=== PATIENT | female | born 2000 | race Caucasian/White ===

== ENCOUNTER 2024-09-30 18:30 | Emergency (ER) | payer MEDICAID, SELFPAY ==
[2024-09-30 19:32] VITALS: BP 117/78; PULSE 89; RESP 18; TEMP 36.9; O2SAT 98; BMI 25.8
--- NOTE | 2024-09-30 20:01 | PD.EDFMALE ---
ED Female Urogenital RME/HPI General Chief complaint: Fever Stated complaint: FEVER, CHILLS, NAUSEA, DIARRHEA, POST UIT X FRI Time Seen by Provider: 09/30/24 19:53 Arrival date/time: 09/30/24 18:30 24F with no significant PMH presents to ED with 1 week intermittent of fevers/chills, N/V, non-bloody diarrhea, and dysuria. Patient denies URI symptoms. Patient is on her period. Limitations: no limitations Related Data Home Medications ?Medication ?Instructions ?Recorded ?Confirmed ferrous sulfate 325 mg (65 mg 325 mg PO 1XD 07/11/22 07/11/22 iron) tablet pantoprazole 40 mg tablet,delayed 40 mg PO QDAY 07/11/22 07/11/22 release vit no.95-ferrous 1 tab PO BID 07/11/22 07/11/22 fumarate 28 mg-folic acid 800 mcg tablet () Previous Rx's ?Medication ?Instructions ?Recorded benzocaine 20 %-menthol 0.5 % 1 spray topical TID #56 pumps 07/11/22 topical aerosol (Dermoplast (with menthol)) ibuprofen 800 mg tablet 800 mg PO Q6H PRN pain #90 tabs 07/11/22 lanolin 50 % topical ointment 1 applic topical TID PRN skin 07/11/22 irritation #15 tubes cefuroxime axetil 500 mg tablet 500 mg PO BID 7 days #14 tabs 10/01/24 Allergies Allergy/AdvReac Type Severity Reaction Status Date / Time No Known Allergies Allergy Verified 09/30/24 18:34 Review of Systems Review of Systems Systems Reviewed: All systems reviewed, normal except as documented Constitutional Constitutional: Reports system reviewed and no additional complaints, except as documented, Reports as per HPI, Reports chills, Reports fever(s) and Denies headache(s) ENT Ears, Nose, Mouth, and Throat: Denies disequilibrium and Denies headache(s) Cardiovascular Cardiovascular: Reports system reviewed and no additional complaints, except as documented, Denies chest pain and Denies dyspnea Respiratory Respiratory: Reports system reviewed and no additional complaints, except as documented, Denies cough and Denies dyspnea Gastrointestinal Gastrointestinal: Reports system reviewed and no additional complaints, except as documented, Reports as per HPI, Reports abdominal pain, Reports diarrhea, Reports nausea and Reports vomiting Genitourinary Genitourinary: Reports as per HPI and Reports dysuria Neurologic Neurologic: Reports system reviewed and no additional complaints, except as documented, Denies confusion, Denies disequilibrium and Denies headache(s) Psychiatric Psychiatric: Denies confusion Past Medical History Past Medical History NEUROLOGIC: Negative Neurological Disorders CARDIAC: Negative Cardiac Disorders, Hypercholesterolemia, Congestive Heart Failure or Hypertension RESPIRATORY: Negative Chronic Obstructive Pulmonary Disease (COPD) or Asthma GASTROINTESTINAL: Negative Gastrointestinal Disorders or Hepatitis GENITOURINARY: Negative Genitourinary Disorders, Renal Disease (PYELONEPHRITIS, uti), Kidney Stones, Polycystic Kidney Disease, Neurogenic Bladder, Inguinal Hernia, Dialysis or Benign Prostatic Hyperplasia REPRODUCTIVE: Positive Previous Pregnancies (gave 07/2022) MUSCULOSKELETAL: Negative Musculoskeletal Disorders ENDOCRINE: Negative Endocrine Disorders, Diabetes Mellitus Type 1 or Diabetes Mellitus Type 2 HEMATOLOGIC: Positive Blood Disorders and Anemia; Negative Leukemia, Hemophilia, Thalassemia, Sickle Cell Disease or Clotting Problems PSYCHO/SOCIAL: Positive Depression (2020) and Anxiety (2020); Negative Psychiatric Problems, Schizophrenia, Recreational Drug Use, Bipolar Disorder, Behavior Problems, Self-Mutilation, Attention Deficit Disorder, Attention Deficit Hyperactivity Disorder, Depression, Post Traumatic Stress Disorder or Eating Disorder OTHER HISTORY: Negative Hospitalization, Autoimmune Disease, Down Syndrome, Autism, Developmental Delay, Shingles, Falls, Blood Transfusions, Blood Transfusion Reaction, Anesthesia Reactions, Organ Transplant, Chemotherapy, Radiation Therapy, Hyperbaric Therapy, MRSA, VRSA, Vancomycin-Resistant Enterococci, Human Immunodeficiency Virus (HIV), Chicken Pox, Measles, Mumps, Rubella (Macedonian Measles), Pertussis, Clostridium Difficile or Cancer Family History FAMILY HISTORY: Positive Family Surgery (appendectomy (mom,brother, grandmother)); Negative Family Psychiatric Problems, Family Respiratory Disorders, Family Cardiac Disorders, Family Gastrointestinal Problems, Family Cancer or Family Anesthesia Reaction Surgical History SURGICAL: Negative Section or Organ Transplant Social History SMOKING STATUS: Never smoker ED Exam General Limitations: Present no limitations General appearance: Present alert and in no apparent distress Head Head exam: Present atraumatic Eye Eye exam: Present normal appearance, PERRL and EOMI ENT ENT exam: Present normal exam, normal oropharynx and mucous membranes moist Neck Neck exam: Present normal inspection, full ROM and trachea midline Chest Chest inspection: Present normal inspection and symmetric chest wall rise Respiratory Respiratory exam: Present normal lung sounds bilaterally Cardiovascular Cardiovascular exam: Present regular rate, normal rhythm and normal heart sounds Abdominal Exam Abdominal exam: Present soft and normal bowel sounds Extremities Exam Extremities exam: Present normal inspection and full ROM Back Exam Back exam: Present full ROM and CVA tenderness (L) (mild) Neurological Exam Neurological exam: Present alert, oriented X3 and CN II-XII intact Psychiatric Psychiatric exam: Present normal affect and normal mood Skin Skin exam: Present warm, dry, intact and normal color Course Quality Measures none Orders Category Date Time Status CT abdomen pelvis wo con Stat Exams 09/30/24 22:52 Completed CBC Stat Lab 09/30/24 20:02 Completed CMP [Comprehensive Metabolic Panel] Stat Lab 09/30/24 20:02 Completed HCG Qualitative,Urine Stat Lab 09/30/24 21:53 Completed Urinalysis, C/S if Indicated Stat Lab 09/30/24 21:53 Completed Potassium Chloride [K-Dur] Med 09/30/24 20:37 Discontinued 40 meq PO X1 ONE Vital Signs Vital signs: Vital Signs Temperature 98.4 F 09/30/24 19:32 Pulse Rate 89 09/30/24 19:32 Respiratory Rate 18 09/30/24 19:32 Blood Pressure 117/78 09/30/24 19:32 Pulse Oximetry (%) 98 09/30/24 19:32 Oxygen Delivery Method Room Air 09/30/24 19:32 O2 at 98% on RA and WNLs Urogenital - Female MDM Narrative MDM Narrative:: 24F with no significant PMH presents to ED with 1 week intermittent of fevers/chills, N/V, non-bloody diarrhea, and dysuria. Patient denies URI symptoms. Patient is on her period. Physical exam reveals minimal L flank tenderness. No ab tenderness. Patient is afebrile, calm, and alert. No leukocytosis. Mild hypoK, repleted, likely due to GI loss. CT unremarkable. UA lots of blood and some RBCs. Will treat as UTI given symptoms of dysuria. More likely viral gastroenteritis. Patient data External records reviewed:: [facility] previous records Clinical information provided by:: patient Social determinants that could affect healthcare access:: none Patient has the following chronic illnesses:: none How is presenting disease/condition affected by chronic disease/condition?: no chronic disease Evaluation data The following diagnostics were reviewed and interpreted by me:: lab results Lab and/or radiology exams considered but not ordered:: ordered Interpretation Summary: above Medications / Prescriptions Medications or Prescriptions considered but not ordered:: ordered Medication administrations:: Medication Administration History Discontinued Medications Potassium Chloride (Potassium Chloride 20 Meq Tabcr) 40 meq PO X1 ONE Stop: 09/30/24 20:38 Last Admin: 09/30/24 21:29 Dose: 40 meq Documented By: above Consultations Consultation(s) initiated? (list below): No Diagnosis Urogenital Female Differential Diagnosis: urinary tract infection, bacterial vaginosis, trichomoniasis, cervicitis, ovarian cyst, vaginitis, ruptured ovarian cyst, cyst of Bartholin's gland, cystitis, dysmenorrhea and other (gastroenteritis) Most likely diagnosis given after review of the tests above:: UTI and gastroenteritis Admission Indicated Admission indicated?: not indicated Admission Request Was there a request for admission?: No Disposition Plan Disposition Plan: Discharge Discharge Attestation Discharge Attestation: The patient and all family members were given an opportunity to ask questions and understood the discharge instructions. Discharge instructions specifically effects, indications for sooner follow up or return to the emergency department, and the expected course of current diagnosis. Patient condition: Stable Discharge Plan Plan Patient Disposition: HOME (Self Care) Discharge Disposition comment: Stable Prescriptions/Referrals Prescriptions/Med Rec: New cefuroxime axetil 500 mg tablet 500 mg PO BID 7 Days Qty: 14 0RF No Action pantoprazole 40 mg Tablet,Delayed Release (Dr/Ec) 40 mg PO QDAY ferrous sulfate 325 mg (65 mg iron) tablet 325 mg PO 1XD Patient Comments: TAKE 1 TABLET BY MOUTH TWICE A DAY PNV cmb#95-ferrous fumarate-FA [] 28 mg iron- 800 mcg tablet 1 tab PO BID Patient Comments: TAKE 1 TABLET BY MOUTH EVERY DAY FOR 30 DAYS Dermoplast (with menthol) 20-0.5 % aerosol 1 spray topical TID Qty: 56 0RF ibuprofen 800 mg tablet 800 mg PO Q6H MDD 4 PRN (Reason: pain) Qty: 90 0RF lanolin 50 % ointment 1 applic topical TID PRN (Reason: skin irritation) Qty: 15 0RF Referrals: Lino Cardoza MD [Primary Care Provider] - In 1 week Problem List Clinical Impression: Gastroenteritis, UTI (urinary tract infection) Patient/Caregiver Discharge Instructions Education Materials: ED Diarrhea, Viral (Adult) Additional Instructions: Please follow-up with PCP within 24-48 hours and return immediately if symptoms worsen. Follow-up with PCP for possible stool sampling. Print Language: Vietnamese Stand Alone Forms: Patient Portal Info Letter BELINDA/PATRICIA Supervising Physician BELINDA/PATRICIA Supervising Physician: Dr. Campbell
[2024-09-30 20:19] LABS: Basophils % (Auto) 1 % (0-2.5); Eosinophils # (Auto) 0.2 Thou/mm3 (0.0-0.5); Eosinophils % (Auto) 3 % (0-10); Hematocrit 39.3 % (36.0-46.0); Hemoglobin 13.7 g/dL (12.0-16.0); Immature Granulocytes % (Auto) 0 % (0-0); Immature Granulocytes Auto 0.01 Thou/mm3 (0.00-0.00); Lymphocytes % (Auto) 34 % (10-50); Mean Corpuscular HGB Conc 34.9 g/dl (31.0-37.0); Mean Corpuscular Hemoglobin 30.6 pg (25.0-35.0); Mean Corpuscular Volume 88 fL (80-100); Monocytes # (Auto) 0.8 Thou/mm3 (0.0-0.8); Monocytes % (Auto) 14 % (0-12); Neutrophils # (Auto) 2.9 Thou/mm3 (1.8-7.7); Neutrophils % (Auto) 48 % (37-80); Nucleated Red Blood Cell % 0 /100 WBC (0); Platelet Count 249 Thou/mm3 (140-440); RDW Standard Deviation 42.4 fL (36.4-46.3); Red Blood Count 4.47 Miln/mm3 (4.00-5.20)
[2024-09-30 20:33] LABS: Alanine Aminotransferase 46 U/L (10-49); Albumin, Serum 4.4 gm/dL (3.5-5.0); Albumin/Globulin Ratio 1.4 (1.2-2.2); Alkaline Phosphatase 91 U/L (46-116); Anion Gap 12 (7-16); Aspartate Amino Transferase 21 U/L (0-34); BUN/Creatinine Ratio 11 Ratio (12-20); Bilirubin,Total 0.3 mg/dL (0.3-1.2); Blood Urea Nitrogen 9 mg/dL (9-23); Calcium 9.2 mg/dL (8.3-10.6); Calcium (Corrected) 9.2 mg/dL (8.5-10.1); Carbon Dioxide 22.1 mMol/L (20.0-31.0); Chloride 105 mMol/L (98-107); Creatinine (Component) 0.8 mg/dL (0.6-1.3); Estimated Creatinine Clearance 97.5 mL/min (>60); Globulin 3.2 gm/dL (2.3-3.5); Glucose 87 mg/dL (74-106); Osmolality,Calculated 275 (275-295); Potassium 3.2 mMol/L (3.4-5.1); Sodium 139 mMol/L (136-145); Total Protein 7.6 gm/dL (5.7-8.2); eGFR > 60 See Note
[2024-09-30] MEDS: POTASSIUM CHLORIDE 20 mEq TABCR 40 MEQ PO (21:29)
[2024-09-30 22:05] LABS: Collection Type, Urine Clean Catch
[2024-09-30 22:17] LABS: Bilirubin,Urine Negative (Negative); Blood,Urine 3+ (Negative); Clarity,Urine Turbid (Clear/Hazy); Color,Urine Yellow (Lt Yel-Yel); Culture Indicated,Urine Contaminated; Glucose, Urine Negative (Negative); Ketones,Urine Negative (Negative); Leukocyte Esterase,Urine Positive (Negative); Nitrite,Urine Negative (Negative); Protein,Urine 1+ (Neg - Trace); RBC,Urine 2851 /hpf (0-3); Specific Gravity,Urine 1.033 (1.001-1.035); Squamous Epithelial Cell,Urine 15 /hpf (0-5); Urobilinogen,Urine Negative mg/dL (0.0-1.0); WBC,Urine 33 /hpf (0-5)
[2024-09-30 22:50] LABS: HCG Qualitative,Urine Negative
--- NOTE | 2024-09-30 22:52 | XR_ITS ---
Examination: CT abdomen and pelvis without contrast. Coronal 3-D reconstructions. Sagittal 2-D reconstructions. Date and time of exam:September 30, 2024 10:57 PM INDICATIONS: Fever chills diarrhea beginning September 25, 2024 CTDI: vol (mGy): 7.25 DLP: (mGycm): 354 Technique: Axial images of the abdomen have been obtained, 3 mm slice thickness Intravenous contrast material has not been administered. Low dose protocols were performed. One or more of the following dose reduction techniques were used; automated exposure control, adjustment of the mA and/or KV according to patient size, use of iterative reconstruction technique. Findings: No focal liver or splenic lesion Contracted gallbladder No pancreatic mass No renal or ureteral calculi, no hydronephrosis Aorta normal size No pericecal inflammatory change No diverticulitis or bowel obstruction Urinary bladder intact IMPRESSION: No renal or ureteral calculi, no hydronephrosis No CT findings of appendicitis or diverticulitis bowel obstruction or free air
[2024-10-01 01:53] VITALS: BP 126/81; PULSE 78; RESP 16; TEMP 36.6; O2SAT 98
== END 2024-10-01 02:09 | disposition home or self-care (01) ==
PROVIDERS: Physician Assistant; Emergency Provider Emergency Medicine; PCP Family Medicine
DX: K52.9 Noninfective gastroenteritis and colitis, unspecified (principal); N39.0 Urinary tract infection, site not specified
CPT/HCPCS: 36415; 74176; 80053; 81001; 81025; 85025; 99284; A9270

== ENCOUNTER 2024-11-20 08:25 | Emergency (ER) | payer MEDICAID, SELFPAY ==
[2024-11-20 08:33] VITALS: BP 110/75; PULSE 89; RESP 17; TEMP 37.2; O2SAT 98; BMI 24.4
--- NOTE | 2024-11-20 08:40 | XR_ITS ---
Examination: Pelvic ultrasound, transabdominal, complete Technique: Transabdominal ultrasound of the pelvis performed using grayscale imaging Date and time of exam: November 20, 2024 0903 hours INDICATIONS: Left-sided pelvic pain beginning 3 months ago FINDINGS: Uterus 7.3 cm endometrial stripe 0.6 cm No uterine mass or intrauterine gestation Right ovary 3.1 cm arterial flow 15 mm 12 mm follicular cyst Dilated fluid-filled right fallopian tube 10 mm Left ovary 2.4 cm arterial flow 15 mm follicular cyst IMPRESSION: No uterine mass or intrauterine gestation Right hydrosalpinx versus pyosalpinx, clinical correlation advised
--- NOTE | 2024-11-20 08:41 | PD.EDRME ---
Rapid Medical Screening Exam RME Arrival date/time: 11/20/24 08:25 24-year-old female with no known medical history presents to the emergency room with a chief complaint of left lower quadrant pelvic pain, 1 month of bright red rectal bleeding, and lower abdominal cramping. I have greeted and performed a focused initial assessment of this patient. A comprehensive ED assessment and evaluation of the patient, analysis of all test results, and completion of the medical decision making process will be conducted by additional ED providers. Chief Complaint: Nausea/Vomiting/Diarrhea Vital signs: Vital Signs Temperature 98.9 F 11/20/24 08:33 Pulse Rate 89 11/20/24 08:33 Respiratory Rate 17 11/20/24 08:33 Blood Pressure 110/75 11/20/24 08:33 Pulse Oximetry (%) 98 11/20/24 08:33 Oxygen Delivery Method Room Air 11/20/24 08:33 Vital signs reviewed by provider: Yes
[2024-11-20 09:14] LABS: Basophils # (Auto) 0.1 Thou/mm3 (0.0-0.2); Basophils % (Auto) 1 % (0-2.5); Eosinophils # (Auto) 0.2 Thou/mm3 (0.0-0.5); Eosinophils % (Auto) 2 % (0-10); Hematocrit 42.8 % (36.0-46.0); Hemoglobin 14.5 g/dL (12.0-16.0); Immature Granulocytes Auto 0.02 Thou/mm3 (0.00-0.00); Lymphocytes # (Auto) 1.9 Thou/mm3 (1.0-4.8); Lymphocytes % (Auto) 27 % (10-50); Mean Corpuscular HGB Conc 33.9 g/dl (31.0-37.0); Mean Corpuscular Hemoglobin 30.9 pg (25.0-35.0); Mean Corpuscular Volume 91 fL (80-100); Monocytes # (Auto) 0.5 Thou/mm3 (0.0-0.8); Monocytes % (Auto) 8 % (0-12); Neutrophils # (Auto) 4.4 Thou/mm3 (1.8-7.7); Neutrophils % (Auto) 62 % (37-80); Nucleated Red Blood Cell # 0.00 Thou/mm3 (0.00-0.00); Nucleated Red Blood Cell % 0 /100 WBC (0); Platelet Count 347 Thou/mm3 (140-440); RDW Standard Deviation 43.9 fL (36.4-46.3); Red Blood Count 4.70 Miln/mm3 (4.00-5.20); White Blood Count 7.1 Thou/mm3 (3.6-11.0)
[2024-11-20 09:18] LABS: Collection Type, Urine Clean Catch
[2024-11-20 09:30] LABS: HCG Qualitative,Urine Negative
[2024-11-20 09:38] LABS: Alanine Aminotransferase 14 U/L (10-49); Albumin, Serum 4.6 gm/dL (3.5-5.0); Albumin/Globulin Ratio 1.4 (1.2-2.2); Alkaline Phosphatase 88 U/L (46-116); Anion Gap 11 (7-16); Aspartate Amino Transferase 13 U/L (0-34); BUN/Creatinine Ratio 11 Ratio (12-20); Bilirubin,Total 0.8 mg/dL (0.3-1.2); Blood Urea Nitrogen 10 mg/dL (9-23); Calcium 9.5 mg/dL (8.3-10.6); Calcium (Corrected) 9.5 mg/dL (8.5-10.1); Carbon Dioxide 23.6 mMol/L (20.0-31.0); Chloride 107 mMol/L (98-107); Creatinine (Component) 0.9 mg/dL (0.6-1.3); Estimated Creatinine Clearance 78.4 mL/min (>60); Globulin 3.4 gm/dL (2.3-3.5); Glucose 90 mg/dL (74-106); Lipase 38 U/L (12-53); Osmolality,Calculated 282 (275-295); Potassium 3.5 mMol/L (3.4-5.1); Sodium 142 mMol/L (136-145); Total Protein 8.0 gm/dL (5.7-8.2); eGFR > 60 See Note
[2024-11-20 09:49] LABS: Bilirubin,Urine Negative (Negative); Blood,Urine 2+ (Negative); Clarity,Urine Turbid (Clear/Hazy); Color,Urine Yellow (Lt Yel-Yel); Glucose, Urine Negative (Negative); Hyaline Casts,Urine 1 /hpf (0-1); Ketones,Urine Trace (Negative); Leukocyte Esterase,Urine Positive (Negative); Nitrite,Urine Negative (Negative); PH,Urine 6.0 (5.0-7.0); Protein,Urine 1+ (Neg - Trace); RBC,Urine 4 /hpf (0-3); Specific Gravity,Urine 1.036 (1.001-1.035); Squamous Epithelial Cell,Urine 8 /hpf (0-5); Urobilinogen,Urine Negative mg/dL (0.0-1.0); WBC,Urine 11 /hpf (0-5)
[2024-11-20 12:10] VITALS: BP 114/89; PULSE 86; RESP 15; TEMP 36.6; O2SAT 100
--- NOTE | 2024-11-20 12:16 | PD.EDNV ---
Nausea/Vomit./Diarrhea-RME/HPI General Chief complaint: Nausea/Vomiting/Diarrhea Stated complaint: SOB, vomiting, blood in stool X 1 month, dizzy Time Seen by Provider: 11/20/24 11:35 Arrival date/time: 11/20/24 08:25 RME / HPI RME / HPI Narrative: 24-year-old female patient came in for evaluation regarding multiple complaints. Patient is having on and off bright red blood per rectum. Shortness of breath, vomiting, constipation, dizzy, has been ongoing, on and off for the last 1 month. Bright red blood per rectum was noted to be small amount, sometimes with hard stool. Patient denies any fever. Denies any abdominal pain. Patient denies any rectal pain. Denies any palpable masses in the rectal area. Denies any other complaints no medications taken prior to arrival. Related Data Home Medications ?Medication ?Instructions ?Recorded ?Confirmed ferrous sulfate 325 mg (65 mg 325 mg PO 1XD 07/11/22 07/11/22 iron) tablet pantoprazole 40 mg tablet,delayed 40 mg PO QDAY 07/11/22 07/11/22 release vit no.95-ferrous 1 tab PO BID 07/11/22 07/11/22 fumarate 28 mg-folic acid 800 mcg tablet () Previous Rx's ?Medication ?Instructions ?Recorded benzocaine 20 %-menthol 0.5 % 1 spray topical TID #56 pumps 07/11/22 topical aerosol (Dermoplast (with menthol)) ibuprofen 800 mg tablet 800 mg PO Q6H PRN pain #90 tabs 07/11/22 lanolin 50 % topical ointment 1 applic topical TID PRN skin 07/11/22 irritation #15 tubes hydrocortisone acetate 25 mg 25 mg KS QDAY #12 ea 11/20/24 rectal suppository (Anusol-HC) pantoprazole 40 mg tablet,delayed 40 mg PO QDAY #14 tabs 11/20/24 release (Protonix) Allergies Allergy/AdvReac Type Severity Reaction Status Date / Time No Known Allergies Allergy Verified 11/20/24 08:31 Review of Systems Review of Systems Narrative Review of Systems: Review of system reviewed and within normal limits except mentioned in HPI ED Exam Narrative Physical exam: VITAL SIGNS: Reviewed. GENERAL APPEARANCE: Alert and interactive, follows commands, no acute distress, HEAD AND FACE: Non-traumatic. ENT: PERRL, pink conjunctivitis, eyelid no trauma, Mucous membrane moist. NECK: Supple, nontender, no nuchal rigidity. CHEST: No tenderness, no crepitus, no paradoxical movement, no retractions. LUNGS: Clear, well ventilated, symmetric, no rales, no wheezing, no ronchi, no stridor, good breath sounds bilaterally. HEART: Regular rate, regular rhythm, no murmur, no gallops. ABDOMEN: Soft, positive bowel sounds, nondistended, no guarding, nontender, no rebound, no masses, RECTAL: Deferred. GENITAL: Deferred. NEUROLOGICAL: Gross motor function intact sensory function intact, Appropriate for age. MUSCULOSKELETAL: low back nontender, full range of motion. EXTREMITIES: Nontender, full range of motion. SKIN: Color pink, dry, no rash, no lacerations, no abrasions, no contusions. LYMPHATICS: Deferred. Course Quality Measures none Orders Category Date Time Status US pelvic complete Stat Exams 11/20/24 08:40 Completed CBC Stat Lab 11/20/24 09:00 Completed CMP [Comprehensive Metabolic Panel] Stat Lab 11/20/24 09:00 Completed Drug Screen,Urine Stat Lab 11/20/24 11:37 Ordered HCG Qualitative,Urine Stat Lab 11/20/24 09:12 Completed Lipase Stat Lab 11/20/24 09:00 Completed UA [Urinalysis] Stat Lab 11/20/24 09:12 Completed Urine Culture Stat Lab 11/20/24 08:40 Received Magnesium Citrate Liqd [Citrate of Magnesia Liqd] Med 11/20/24 12:14 Discontinued 300 ml PO X1 ONE Ondansetron Odt [Zofran Odt] Med 11/20/24 12:14 Discontinued 4 mg PO X1 ONE Vital Signs Vital signs: Vital Signs Temperature 98.9 F 11/20/24 08:33 Pulse Rate 89 11/20/24 08:33 Respiratory Rate 17 11/20/24 08:33 Blood Pressure 110/75 11/20/24 08:33 Pulse Oximetry (%) 98 11/20/24 08:33 Oxygen Delivery Method Room Air 11/20/24 08:33 Nausea/Vomiting/Diarrhea MDM Narrative MDM Narrative:: 24-year-old female patient came in for evaluation regarding multiple complaints. Patient is having on and off bright red blood per rectum. Shortness of breath, vomiting, constipation, dizzy, has been ongoing, on and off for the last 1 month. Bright red blood per rectum was noted to be small amount, sometimes with hard stool. Patient denies any fever. Denies any abdominal pain. Patient denies any rectal pain. Denies any palpable masses in the rectal area. Denies any other complaints no medications taken prior to arrival. Patient's workup all came back unremarkable. Patient's urinalysis is contaminated. Patient is denying any symptoms of UTI. Patient told me that she is waiting for a call from GI specialist to be seen. Patient appears nontoxic and hemodynamically stable .Decision to discharge the patient. The patient/family was given an opportunity to ask questions and understood their discharge instructions. Discharge instructions specifically included follow up provider and time frame, current and/or new medications and possible side effects, indications for sooner follow up or return to the emergency department, and the expected course of current diagnosis. Patient reports feeling better as well and giving evidence of significant clinical improvement, I believe patient is now a candidate for discharge. Patient data External records reviewed:: None Clinical information provided by:: patient and family Social determinants that could affect healthcare access:: none Patient has the following chronic illnesses:: None How is presenting disease/condition affected by chronic disease/condition?: no chronic disease Evaluation data The following diagnostics were reviewed and interpreted by me:: lab results Lab and/or radiology exams considered but not ordered:: None Interpretation Summary: See results MDM Medications / Prescriptions Medications / Prescriptions considered but not ordered:: None Zofran and magnesium citrate Medication administrations:: Medication Administration History Discontinued Medications Magnesium Citrate (Magnesium Citrate 300 Ml Btl) 300 ml PO X1 ONE Stop: 11/20/24 12:15 Last Admin: 11/20/24 12:36 Dose: 300 ml Documented By: MARGARITO Ondansetron HCl (Ondansetron Odt 4 Mg Tabrap) 4 mg PO X1 ONE; Protocol Stop: 11/20/24 12:15 Last Admin: 11/20/24 12:35 Dose: 4 mg Documented By: EF Magnesium Zofran Consultations Consultation(s) initiated? (list below): No Diagnosis Nausea Differential Diagnosis: gastroenteritis and other (Constipation, bright red blood per rectum) Most likely diagnosis given after review of the tests above:: Constipation, bright red blood per rectum, constipation Admission Indicated Admission indicated?: not indicated Admission Request Was there a request for admission?: No Disposition Plan Disposition Plan: Discharge Discharge Attestation Discharge Attestation: The patient and all family members were given an opportunity to ask questions and understood the discharge instructions. Discharge instructions specifically effects, indications for sooner follow up or return to the emergency department, and the expected course of current diagnosis. Patient condition: Stable Discharge Plan Plan Patient Disposition: HOME (Self Care) Discharge Disposition comment: Stable Prescriptions/Referrals Prescriptions/Med Rec: New hydrocortisone acetate [Anusol-HC] 25 mg suppository 25 mg KS QDAY Qty: 12 0RF pantoprazole [Protonix] 40 mg tablet,delayed release (DR/EC) 40 mg PO QDAY Qty: 14 0RF No Action pantoprazole 40 mg Tablet,Delayed Release (Dr/Ec) 40 mg PO QDAY ferrous sulfate 325 mg (65 mg iron) tablet 325 mg PO 1XD Patient Comments: TAKE 1 TABLET BY MOUTH TWICE A DAY PNV cmb#95-ferrous fumarate-FA [] 28 mg iron- 800 mcg tablet 1 tab PO BID Patient Comments: TAKE 1 TABLET BY MOUTH EVERY DAY FOR 30 DAYS Dermoplast (with menthol) 20-0.5 % aerosol 1 spray topical TID Qty: 56 0RF ibuprofen 800 mg tablet 800 mg PO Q6H MDD 4 PRN (Reason: pain) Qty: 90 0RF lanolin 50 % ointment 1 applic topical TID PRN (Reason: skin irritation) Qty: 15 0RF Referrals: Lino Cardoza MD [Primary Care Provider] - In 1 week Problem List Clinical Impression: Bright red blood per rectum, Constipation Patient/Caregiver Discharge Instructions Discharge Activity: activity as tolerated Education Materials: Understanding Rectal Bleeding Additional Instructions: Thank you for the opportunity for serving you today. You are stable for discharged . You are advised to: Follow-up with your GI specialist referral as instructed Return to ED for worsening of symptoms Increase oral fluids Take medication as prescribed Increase fiber in the diet you can take prune juice as needed for your constipation also. Eat a lot of papaya Print Language: French Stand Alone Forms: [employer] Award Info., Patient Portal Info Letter
[2024-11-20] MEDS: ONDANSETRON ODT 4 MG TABRAP PO (12:35)
[2024-11-20] MEDS: MAGNESIUM CITRATE 300 ML BTL PO (12:36)
== END 2024-11-20 13:11 | disposition home or self-care (01) ==
PROVIDERS: Nurse Practitioner Family; Emergency Provider Emergency Medicine; PCP Family Medicine
DX: K62.5 Hemorrhage of anus and rectum (principal); K59.00 Constipation, unspecified; R10.2 Pelvic and perineal pain
CPT/HCPCS: 36415; 76856; 80053; 80307; 81001; 81025; 83690; 85025; 87086; 99284; Q0162; A9270

== ENCOUNTER 2024-11-28 03:00 | Emergency (ER) | payer MEDICAID, SELFPAY ==
[2024-11-28 03:01] VITALS: BP 121/87; PULSE 115; RESP 17; TEMP 36.9; O2SAT 100; BMI 24.3
--- NOTE | 2024-11-28 03:25 | XR_ITS ---
Examination: Abdomen sonogram, Limited Date and time of exam: November 28, 2024 0358 hours INDICATIONS: Abdominal pain and vomiting beginning 2 months ago Technique: Real-time hernandez scale transabdominal sonographic images of the upper abdomen obtained. Findings: Normal gallbladder Normal common bile duct 0.4 cm Pancreatic head 2.2 cm Liver 15.2 cm no liver lesions. Normal hepatopedal portal venous flow Patent IVC Impression : Negative study
--- NOTE | 2024-11-28 03:29 | PD.EDABDPN ---
ED Abdominal Pain RME/HPI General Chief Complaint: Abdominal Pain Stated complaint: UPPER ABD PAIN, SOB, THROAT PAIN Time seen by provider: 11/28/24 03:19 Arrival date/time: 11/28/24 03:00 RME / HPI RME / HPI narrative: This section includes all my notes and documentations, including HPI, PE, and ED course. Adan Tellez MD HPI: 24 y/o female presents with worsening severe upper abdominal pain and vomiting x 3 days. She has lost 20-25 pounds and has been experiencing abdominal pain for the last 1.5 months. Patient is pending colonoscopy. Denies any chance of . Denies any prior abdominal surgeries. She is currently on Protonix. No other complaints. ROS: All negative except as documented in HPI. Physical Exam: General: Alert and oriented. In severe pain. Eyes: Conjunctivae and lids clear. ENT: No nasal congestion. Neck: Supple. Heart: RRR. Lungs: No respiratory distress. Good air movement. No rhonchi, wheezing, rales. Abdomen: Soft with epigasric tenderness. Normal bowel sounds. No distension. No rebound or guarding. Back: No CVA tenderness. Skin: Warm and dry. Neuro: Alert and oriented X 3. I reviewed all diagnostic test results: My review of the Gall Bladder US report is: NAD. Blood tests unremarkable. UA showed leukocyte Estrace, 29 RBC, 14 WBC, and 2+ bacteria. Covid/Influenza: Negative. At this point, diagnoses include: Gastritis and UTI. Treatment here included: Pepcid 20 mg, Morphine 4 mg, Zofran 4 mg, Protonix 40 mg, IVF. Significant improvement noted. Recommended outpatient management. Based on my best medical judgment, made decision no further evaluation or treatment indicated at this time. Patient understands and agrees to the discharge instructions customized and printed, see below. Discharge instructions from Dr. Tellez: ?After evaluation, your symptoms are due to stomach ulcer (see attached handout).? ?To help heal the ulcer, take famotidine daily as prescribed along with your Protonix daily for a month. ?Zofran for nausea/vomiting.? Clear liquid diet for 24 hours.? Then slowly advance diet as tolerated. ?Avoid food and beverages that can trigger and worsen ulcers.? See attached handout. --Tylenol with codeine for severe pain. ?See a private doctor on 11/30/2024. Ask to review all test results and official radiology reports, to make sure you receive all necessary follow-ups and monitoring. To make sure there is no serious intra-abdominal condition, ask for help with more investigation not available here in the ER.? Such as EGD or scoping the stomach, colonoscopy or scoping the colon, and referral to see vacuum cleaner repair person. ?Seek immediate medical care with worsening or with any concerns. Adan Tellez MD Related Data Home Medications ?Medication ?Instructions ?Recorded ?Confirmed ferrous sulfate 325 mg (65 mg 325 mg PO 1XD 07/11/22 07/11/22 iron) tablet pantoprazole 40 mg tablet,delayed 40 mg PO QDAY 07/11/22 07/11/22 release vit no.95-ferrous 1 tab PO BID 07/11/22 07/11/22 fumarate 28 mg-folic acid 800 mcg tablet () Previous Rx's ?Medication ?Instructions ?Recorded benzocaine 20 %-menthol 0.5 % 1 spray topical TID #56 pumps 07/11/22 topical aerosol (Dermoplast (with menthol)) ibuprofen 800 mg tablet 800 mg PO Q6H PRN pain #90 tabs 07/11/22 lanolin 50 % topical ointment 1 applic topical TID PRN skin 07/11/22 irritation #15 tubes hydrocortisone acetate 25 mg 25 mg SC QDAY #12 ea 11/20/24 rectal suppository (Anusol-HC) pantoprazole 40 mg tablet,delayed 40 mg PO QDAY #14 tabs 11/20/24 release (Protonix) acetaminophen 300 mg-codeine 30 mg 2 tab PO Q8H PRN pain #20 tabs 11/28/24 tablet cefdinir 300 mg capsule 300 mg PO BID #14 caps 11/28/24 famotidine 40 mg tablet 40 mg PO BID #60 tabs 11/28/24 ondansetron 4 mg disintegrating 4 mg PO TID PRN nausea and 11/28/24 tablet vomiting 30 days #10 tabs Allergies Allergy/AdvReac Type Severity Reaction Status Date / Time No Known Allergies Allergy Verified 11/20/24 08:31 Review of Systems Review of Systems Systems Reviewed: All systems reviewed, normal except as documented Past Medical History Past Medical History REPRODUCTIVE: Positive Previous Pregnancies HEMATOLOGIC: Positive Blood Disorders and Anemia PSYCHO/SOCIAL: Positive Depression and Anxiety Family History FAMILY HISTORY: Positive Family Surgery ED Exam Narrative Physical exam: Ref[facility] to [facility] Course Quality Measures none Orders Category Date Time Status Bedside COVID-19 Antigen Test NOW Care 11/28/24 03:24 Completed Bedside Influenza A&B Antigen Test NOW Care 11/28/24 03:24 Completed Saline [Insert IV] NOW Care 11/28/24 03:24 Completed US gall bladder Stat Exams 11/28/24 03:25 Completed Alcohol, Blood Medical Stat Lab 11/28/24 04:00 Completed Amylase Stat Lab 11/28/24 04:00 Completed Bilirubin,Direct Stat Lab 11/28/24 04:00 Completed CBC Stat Lab 11/28/24 04:00 Completed CMP [Comprehensive Metabolic Panel] Stat Lab 11/28/24 04:00 Completed HCG,Qualitative Serum Stat Lab 11/28/24 04:00 Completed Lipase Stat Lab 11/28/24 04:00 Completed Magnesium Stat Lab 11/28/24 04:00 Completed UA, C/S IF [Urinalysis, C/S if Indicated] Stat Lab 11/28/24 03:26 Completed Urine Culture Stat Lab 11/28/24 04:37 Received Famotidine Inj [Pepcid Inj] Med 11/28/24 03:24 Discontinued 20 mg IVP X1 ONE Morphine Inj Med 11/28/24 03:24 Discontinued 4 mg IVP X1 ONE Ondansetron Inj [Zofran Inj] Med 11/28/24 03:24 Discontinued 4 mg IVP X1 ONE Pantoprazole Inj [Protonix Inj] Med 11/28/24 03:24 Discontinued 40 mg IVP X1 ONE Sodium Chloride 0.9% 1000 ml [Ns] 1,000 ml Med 11/28/24 03:24 Discontinued IV 999 mls/hr Vital Signs Vital signs: Vital Signs Temperature 98.4 F 11/28/24 03:01 Pulse Rate 115 H 11/28/24 03:01 Respiratory Rate 17 11/28/24 03:01 Blood Pressure 121/87 H 11/28/24 03:01 Pulse Oximetry (%) 100 11/28/24 03:01 Oxygen Delivery Method Room Air 11/28/24 03:01 Abdominal Pain MDM MDM Narrative MDM Narrative:: Scribe Attestation: I, Kim Dominguez, am scribing for and in the presence of Dr. Tellez. Provider Notation: Although this document has been carefully reviewed, there may still be some phonetic and other typographical errors.? These errors are purely grammatical due to imperfections in the software program and should not be construed in any way to? compromise the substance of the patient's medical care during this visit. 24 y/o female presents with worsening severe upper abdominal pain and vomiting x 3 days. She has lost 20-25 pounds and experiencing abdominal pain for the last 1.5 months. Pain is worse, about 9 out of 10, when laying down. Patient is pending colonoscopy. Denies any chance of . Denies any prior abdominal surgeries. She is currently on Protonix. No other complaints. Patient data External records reviewed:: [facility] previous records (Reviewed prior ED records from 11/20/24. Patient was seen for Bright red blood per rectum.) Clinical information provided by:: patient Social determinants that could affect healthcare access:: none Patient has the following chronic illnesses:: Depression, Anxiety, Anemia How is presenting disease/condition affected by chronic disease/condition?: exacerbated by Evaluation data The following diagnostics were reviewed and interpreted by me:: lab results and radiology exam(s) Lab and/or radiology exams considered but not ordered:: None Interpretation Summary: I reviewed all diagnostic test results: My review of the Gall Bladder US report is: NAD. Blood tests unremarkable. UA showed leukocyte Estrace, 29 RBC, 14 WBC, and 2+ bacteria. Covid/Influenza: Negative. Medications / Prescriptions Medications or Prescriptions considered but not ordered:: None Medication administrations:: Medication Administration History Discontinued Medications Famotidine (Famotidine Inj 10 Mg/Ml Vial 2 Ml) 20 mg IVP X1 ONE Stop: 11/28/24 03:25 Last Admin: 11/28/24 04:14 Dose: 20 mg Documented By: BD Sodium Chloride (Ns) 1,000 mls @ 999 mls/hr IV .Q1H1M ONE Stop: 11/28/24 04:24 Last Infusion: 11/28/24 05:16 Dose: Infused Documented By: Admin: 11/28/24 04:15 Dose: 999 mls/hr Documented By: BD Morphine Sulfate (Morphine Sulf Inj 10 Mg/Ml Vial) 4 mg IVP X1 ONE Stop: 11/28/24 03:25 Last Admin: 11/28/24 04:15 Dose: 4 mg Documented By: BD Ondansetron HCl (Ondansetron Inj 2 Mg/Ml Inj 2 Ml) 4 mg IVP X1 ONE; Protocol Stop: 11/28/24 03:25 Last Admin: 11/28/24 04:14 Dose: 4 mg Documented By: BD Pantoprazole Sodium (Pantoprazole Inj 40 Mg Vial) 40 mg IVP X1 ONE Stop: 11/28/24 03:25 Last Admin: 11/28/24 04:15 Dose: 40 mg Documented By: Admin: 11/28/24 04:14 Dose: 40 mg Documented By: BD Pepcid 20 mg, Morphine 4 mg, Zofran 4 mg, Protonix 40 mg, IVF. Consultations Consultation(s) initiated? (list below): No Diagnosis Differential diagnosis abdominal pain: acute appendicitis, calculus of kidney, constipation, diverticulitis, endometriosis, gastroenteritis, pancreatitis and small bowel obstruction Most likely diagnosis given after review of the tests above:: Gastritis and UTI Admission Indicated Admission indicated?: not indicated Explain why admission is indicated or not indicated:: With significant improvement and no condition needing emergent intervention, there was no indication for admission. Admission Request Was there a request for admission?: No Disposition Plan Disposition Plan: Discharge Discharge Attestation Discharge Attestation: The patient and all family members were given an opportunity to ask questions and understood the discharge instructions. Discharge instructions specifically effects, indications for sooner follow up or return to the emergency department, and the expected course of current diagnosis. Patient condition: Stable Discharge Plan Plan Patient Disposition: HOME (Self Care) Prescriptions/Referrals Prescriptions/Med Rec: New famotidine 40 mg tablet 40 mg PO BID Qty: 60 0RF acetaminophen-codeine 300-30 mg tablet 2 tab PO Q8H MDD 6 PRN (Reason: pain) Qty: 20 0RF ondansetron 4 mg tablet,disintegrating 4 mg PO TID PRN (Reason: nausea and vomiting) 30 Days Qty: 10 0RF cefdinir 300 mg capsule 300 mg PO BID Qty: 14 0RF No Action pantoprazole 40 mg Tablet,Delayed Release (Dr/Ec) 40 mg PO QDAY ferrous sulfate 325 mg (65 mg iron) tablet 325 mg PO 1XD Patient Comments: TAKE 1 TABLET BY MOUTH TWICE A DAY PNV cmb#95-ferrous fumarate-FA [] 28 mg iron- 800 mcg tablet 1 tab PO BID Patient Comments: TAKE 1 TABLET BY MOUTH EVERY DAY FOR 30 DAYS Dermoplast (with menthol) 20-0.5 % aerosol 1 spray topical TID Qty: 56 0RF ibuprofen 800 mg tablet 800 mg PO Q6H MDD 4 PRN (Reason: pain) Qty: 90 0RF lanolin 50 % ointment 1 applic topical TID PRN (Reason: skin irritation) Qty: 15 0RF hydrocortisone acetate [Anusol-HC] 25 mg suppository 25 mg SC QDAY Qty: 12 0RF pantoprazole [Protonix] 40 mg tablet,delayed release (DR/EC) 40 mg PO QDAY Qty: 14 0RF Problem List Clinical Impression: Stomach ulcer, UTI (urinary tract infection) Patient/Caregiver Discharge Instructions Discharge Activity: activity as tolerated Education Materials: ED PEPTIC ULCER vs GASTRITIS Additional Instructions: Discharge instructions from Dr. Tellez: ?After evaluation, your symptoms are due to stomach ulcer (see attached handout).? ?To help heal the ulcer, take famotidine daily as prescribed along with your Protonix daily for a month. ?Zofran for nausea/vomiting.? Clear liquid diet for 24 hours.? Then slowly advance diet as tolerated. ?Avoid food and beverages that can trigger and worsen ulcers.? See attached handout. --Tylenol with codeine for severe pain. ?See a private doctor on 11/30/2024. Ask to review all test results and official radiology reports, to make sure you receive all necessary follow-ups and monitoring. To make sure there is no serious intra-abdominal condition, ask for help with more investigation not available here in the ER.? Such as EGD or scoping the stomach, colonoscopy or scoping the colon, and referral to see vacuum cleaner repair person. ?Seek immediate medical care with worsening or with any concerns. Print Language: Turkish Stand Alone Forms: [employer] Award Info., Work/School Release, Patient Portal Info Letter
[2024-11-28] MEDS: ONDANSETRON INJ 2 MG/ML INJ 2 ML 4 MG IVP (04:14)
[2024-11-28] MEDS: FAMOTIDINE INJ 10 MG/ML VIAL 2 ML 20 MG IVP (04:14)
[2024-11-28] MEDS: SODIUM CHLORIDE 0.9% 1000 ML 1,000 ML 999 ML IV (04:15)
[2024-11-28] MEDS: MORPHINE SULF INJ 10 MG/ML VIAL 4 MG IVP (04:15)
[2024-11-28 04:36] LABS: Basophils # (Auto) 0.0 Thou/mm3 (0.0-0.2); Basophils % (Auto) 0 % (0-2.5); Eosinophils # (Auto) 0.1 Thou/mm3 (0.0-0.5); Eosinophils % (Auto) 1 % (0-10); Hematocrit 38.6 % (36.0-46.0); Hemoglobin 13.4 g/dL (12.0-16.0); Immature Granulocytes Auto 0.03 Thou/mm3 (0.00-0.00); Lymphocytes # (Auto) 1.9 Thou/mm3 (1.0-4.8); Lymphocytes % (Auto) 18 % (10-50); Mean Corpuscular HGB Conc 34.7 g/dl (31.0-37.0); Mean Corpuscular Hemoglobin 30.5 pg (25.0-35.0); Mean Corpuscular Volume 88 fL (80-100); Monocytes # (Auto) 0.8 Thou/mm3 (0.0-0.8); Monocytes % (Auto) 8 % (0-12); Neutrophils # (Auto) 7.6 Thou/mm3 (1.8-7.7); Neutrophils % (Auto) 73 % (37-80); Nucleated Red Blood Cell # 0.00 Thou/mm3 (0.00-0.00); Nucleated Red Blood Cell % 0 /100 WBC (0); Platelet Count 252 Thou/mm3 (140-440); RDW Standard Deviation 41.6 fL (36.4-46.3); Red Blood Count 4.40 Miln/mm3 (4.00-5.20); White Blood Count 10.5 Thou/mm3 (3.6-11.0)
--- NOTE | 2024-11-28 04:52 | PRELIM_ITS ---
Right upper quadrant abdominal ultrasound with Doppler and wave Doppler spectral analysis. November 28, 2024 0358 hours Clinical history: Right upper quadrant tenderness. Technique: Grayscale and color flow images of the right upper quadrant are provided. Hepatic and portal veins were also imaged with color flow images. Comparison: None. Findings: The liver is normal in echogenicity. No intrahepatic biliary ductal dilatation. No gallbladder calculus, wall thickening or pericholecystic fluid is demonstrated. The common bile duct is normal in caliber at 3.5 mm. The pancreas is unremarkable to the extent visualized. The portal vein is patent with hepatopetal flow normal wave Doppler spectral analysis. The hepatic veins are patent with normal wave Doppler spectral analysis. The inferior vena cava is patent with normal wave Doppler spectral analysis. Impression: Unremarkable right upper quadrant ultrasound examination. Report Electronically Signed By: Mehdi Portillo 11/28/2024 4:51:24 AM [EST]
[2024-11-28 04:53] LABS: HCG,Qualitative Serum Negative
[2024-11-28 05:11] LABS: Collection Type, Urine Clean Catch
[2024-11-28 05:24] LABS: Alanine Aminotransferase 16 U/L (10-49); Albumin, Serum 4.4 gm/dL (3.5-5.0); Albumin/Globulin Ratio 1.4 (1.2-2.2); Alcohol, Blood Medical < 3.0 mg/dL (0-10.0); Alkaline Phosphatase 98 U/L (46-116); Amylase 46 U/L (30-118); Anion Gap 15 (7-16); Aspartate Amino Transferase 14 U/L (0-34); BUN/Creatinine Ratio 9 Ratio (12-20); Bilirubin,Direct 0.2 mg/dL (0.0-0.3); Bilirubin,Total 0.5 mg/dL (0.3-1.2); Blood Urea Nitrogen 7 mg/dL (9-23); Calcium 9.3 mg/dL (8.3-10.6); Calcium (Corrected) 9.3 mg/dL (8.5-10.1); Carbon Dioxide 18.4 mMol/L (20.0-31.0); Chloride 107 mMol/L (98-107); Creatinine (Component) 0.8 mg/dL (0.6-1.3); Estimated Creatinine Clearance 88.2 mL/min (>60); Globulin 3.2 gm/dL (2.3-3.5); Glucose 88 mg/dL (74-106); Lipase 36 U/L (12-53); Magnesium 1.7 mg/dL (1.6-2.6); Osmolality,Calculated 276 (275-295); Potassium 3.3 mMol/L (3.4-5.1); Sodium 140 mMol/L (136-145); Total Protein 7.6 gm/dL (5.7-8.2); eGFR > 60 See Note
[2024-11-28 05:31] LABS: Bacteria,Urine 2+; Bilirubin,Urine Negative (Negative); Blood,Urine Negative (Negative); Clarity,Urine Turbid (Clear/Hazy); Color,Urine Yellow (Lt Yel-Yel); Glucose, Urine Negative (Negative); Ketones,Urine 2+ (Negative); Leukocyte Esterase,Urine Positive (Negative); Nitrite,Urine Negative (Negative); PH,Urine 6.0 (5.0-7.0); Protein,Urine 1+ (Neg - Trace); RBC,Urine 29 /hpf (0-3); Specific Gravity,Urine 1.029 (1.001-1.035); Squamous Epithelial Cell,Urine 1 /hpf (0-5); Urobilinogen,Urine Negative mg/dL (0.0-1.0); WBC,Urine 14 /hpf (0-5)
[2024-11-28 05:32] LABS: Culture Indicated,Urine Yes
== END 2024-11-28 05:19 | disposition home or self-care (01) ==
LOC: SERX 05:46
PROVIDERS: Emergency Provider Emergency Medicine; PCP Family Medicine
DX: K25.9 Gastric ulcer, unspecified as acute or chronic, without hemorrhage or perforation (principal); N39.0 Urinary tract infection, site not specified
CPT/HCPCS: 36415; 76705; 80053; 80320; 81001; 81025; 82150; 82248; 83690; 83735; 84703; 85025; 87086; 87400; 87811; 96361; 96374; 96375; 99284; J2270; J2405; J2470; J3490; J7030; G0480